=== PATIENT | male | born 1960 | race African-American/Black ===

== ENCOUNTER 2018-05-06 14:44 | Emergency (ER) | payer OTHER ==
[~2018-05-06] VITALS: Ht 182.9 cm; Wt 83.9 kg
[~2018-05-06 14:44] MED LIST: GLIPIZIDE5 MG; SIMVASTATIN5 MG
[2018-05-06] MEDS ORDERED: METFORMIN HCL500 MG (15:14)
[2018-05-06] MEDS ORDERED: ENALAPRIL (15:15)
== END 2018-05-06 21:07 | disposition home or self-care (01) ==
LOC: ER 14:44
DX: K52.89 Other specified noninfective gastroenteritis and colitis (principal)

== ENCOUNTER 2018-12-24 07:43 | Outpatient (CLI) | payer OTHER ==
[~2018-12-24 07:43] MED LIST changes: +ENALAPRIL; +METFORMIN HCL500 MG
== END 2018-12-24 09:28 | disposition home or self-care (01) ==
LOC: SONOGRAMA 07:43
DX: K85.80 Other acute pancreatitis without necrosis or infection (principal); K81.0 Acute cholecystitis

== ENCOUNTER 2019-02-17 07:31 | Outpatient (CLI) | payer OTHER | END 2019-02-17 07:36 | disposition home or self-care (01) | LOC: RAD 07:31 | DX: N20.0 Calculus of kidney (principal) ==

== ENCOUNTER 2019-03-23 08:56 | Outpatient (CLI) | payer OTHER | END 2019-03-23 08:59 | disposition home or self-care (01) | LOC: SONOGRAMA 08:56 | DX: N40.1 Benign prostatic hyperplasia with lower urinary tract symptoms (principal) ==

== ENCOUNTER 2019-04-11 20:30 | Emergency (ER) | payer OTHER ==
[~2019-04-11] VITALS: Ht 182.9 cm; Wt 93.0 kg
== END 2019-04-11 23:21 | disposition home or self-care (01) ==
LOC: ER 20:30
DX: B34.9 Viral infection, unspecified (principal); R50.9 Fever, unspecified; J11.1 Influenza due to unidentified influenza virus with other respiratory manifestations

== ENCOUNTER 2021-04-06 08:21 | Outpatient (CLI) | payer OTHER | END 2021-04-06 08:35 | disposition home or self-care (01) | LOC: RX STUDY 08:21 | PROVIDERS: ATTEND Internal Medicine Gastroenterology | DX: R10.84 Generalized abdominal pain (principal) ==

== ENCOUNTER → 2021-04-14 07:51 | Outpatient (CLI) | payer OTHER | END | disposition home or self-care (01) | LOC: NUCLEAR 07:00 | PROVIDERS: ATTEND Internal Medicine Cardiovascular Disease | DX: R07.89 Other chest pain (principal); I50.1 Left ventricular failure, unspecified; I20.9 Angina pectoris, unspecified | CPT/HCPCS: 78452; 93017; A9500; J0153 ==

== ENCOUNTER 2023-04-12 14:08 | Outpatient (CLI) | payer OTHER | END 2023-04-12 14:13 | disposition home or self-care (01) | LOC: RAD 14:08 | PROVIDERS: ATTEND General Practice | DX: M25.511 Pain in right shoulder (principal); M25.551 Pain in right hip ==

== ENCOUNTER 2023-06-18 07:46 | Outpatient (CLI) | payer OTHER | END 2023-06-18 07:57 | disposition home or self-care (01) | LOC: NUCLEAR 07:46 | PROVIDERS: ATTEND Internal Medicine Cardiovascular Disease | DX: I25.118 Atherosclerotic heart disease of native coronary artery with other forms of angina pectoris (principal); I11.9 Hypertensive heart disease without heart failure; R07.9 Chest pain, unspecified; E11.9 Type 2 diabetes mellitus without complications | CPT/HCPCS: 78452; 93017; A9500 ==

== ENCOUNTER 2023-09-09 07:35 | Outpatient (CLI) | payer OTHER | END 2023-09-09 07:41 | disposition home or self-care (01) | LOC: RAD 07:35 | PROVIDERS: ATTEND General Practice | DX: M25.552 Pain in left hip (principal) ==

== ENCOUNTER 2023-10-31 07:55 | Outpatient (CLI) | payer OTHER | END 2023-10-31 07:58 | disposition home or self-care (01) | LOC: NUCLEAR 07:55 | PROVIDERS: ATTEND Internal Medicine | DX: I82.409 Acute embolism and thrombosis of unspecified deep veins of unspecified lower extremity (principal) ==

== ENCOUNTER 2024-01-07 13:09 | Outpatient (CLI) | payer OTHER | END 2024-01-07 13:11 | disposition home or self-care (01) | LOC: NUCLEAR 13:09 | PROVIDERS: ATTEND Internal Medicine | DX: M81.8 Other osteoporosis without current pathological fracture (principal) ==

== ENCOUNTER 2024-09-03 08:41 | Outpatient (CLI) | payer OTHER | END 2024-09-03 08:46 | disposition home or self-care (01) | LOC: SONOGRAMA 08:41 | PROVIDERS: ATTEND General Practice | DX: I70.0 Atherosclerosis of aorta (principal); K76.0 Fatty (change of) liver, not elsewhere classified ==

== ENCOUNTER 2025-07-06 10:24 | Outpatient (CLI) | payer OTHER | END 2025-07-06 10:39 | disposition home or self-care (01) | LOC: TOM 10:24 | PROVIDERS: ATTEND General Practice | DX: G44.029 Chronic cluster headache, not intractable (principal) ==

== ENCOUNTER 2025-09-23 07:25 | Outpatient (CLI) | payer OTHER | END 2025-09-23 07:27 | disposition home or self-care (01) | LOC: RAD 07:25 | PROVIDERS: ATTEND General Practice | DX: M25.562 Pain in left knee (principal) ==